=== PATIENT | male | born 1985 | race Caucasian/White ===

== ENCOUNTER 2017-12-23 00:08 | Emergency (ER) | payer OTHER ==
[~2017-12-23] VITALS: Ht 167.6 cm; Wt 63.5 kg
[2017-12-24] MEDS ORDERED: ACYCLOVIR15 GM TOP (07:35)
[2017-12-24] MEDS ORDERED: ZOVIRAX400 MG PO (07:35)
== END 2017-12-24 07:24 | disposition home or self-care (01) ==
LOC: ER 00:08
DX: T78.3XXA Angioneurotic edema, initial encounter (principal); B00.1 Herpesviral vesicular dermatitis

== ENCOUNTER → 2018-11-04 | Emergency (ER) | payer OTHER ==
[~2018-11-04] VITALS: Ht 165.1 cm; Wt 63.5 kg
[~2018-11-04] MED LIST: ACYCLOVIR15 GM TOP; ZOVIRAX400 MG PO
== END | disposition designated cancer center or children's hospital (05) ==
LOC: ER 15:52
DX: F23 Brief psychotic disorder (principal); R45.1 Restlessness and agitation